=== PATIENT | female | born 1995 ===

== ENCOUNTER → 2017-12-01 | Outpatient (CLI) | payer OTHER ==
[~2017-12-01] MED LIST: ALBU90OI61 INH; IBUP600 PO; Vibramycin100 MG PO
== END | disposition home or self-care (01) ==
LOC: LAB EV 09:53 → LAB SHORT 09:53
DX: R30.0 Dysuria (principal)
CPT/HCPCS: 87086

== ENCOUNTER → 2017-12-19 | Outpatient (CLI) | payer OTHER | LOC: LAB SHORT 11:51 → LAB 11:51 | DX: R30.0 Dysuria (principal) | CPT/HCPCS: 87077; 87086; 87186 ==

== ENCOUNTER → 2018-01-08 | Outpatient (CLI) | payer OTHER ==
[2018-01-13 05:00] LABS: CHLAMYDIA TRACHOMATIS, NAA Negative (Negative); NEISSERIA GONORRHOEAE, NAA Negative (Negative)
== END | disposition home or self-care (01) ==
LOC: LAB 16:18 → LAB SHORT 16:18
PROVIDERS: Obstetrics & Gynecology
DX: Z34.81 Encounter for supervision of other normal pregnancy, first trimester (principal)
CPT/HCPCS: 87491; 87591; G0123

== ENCOUNTER → 2018-01-16 | Outpatient (CLI) | payer OTHER | END | disposition home or self-care (01) | LOC: LAB SHORT 11:50 → LAB 11:50 | DX: R30.0 Dysuria (principal) | CPT/HCPCS: 87086 ==

== ENCOUNTER → 2018-05-04 | Outpatient (CLI) | payer OTHER ==
[~2018-05-04] MED LIST changes: +Keflex500 MG PO
== END | disposition home or self-care (01) ==
LOC: LAB 16:00 → LAB SHORT 16:00
DX: N89.8 Other specified noninflammatory disorders of vagina (principal); R30.0 Dysuria
CPT/HCPCS: 87070; 87077; 87086; 87186; 87205

== ENCOUNTER 2018-07-31 03:28 | Inpatient (IN) | payer OTHER ==
[~2018-07-31] VITALS: Ht 165.1 cm; Wt 73.0 kg
[2018-07-31] MEDS ORDERED: Verotin-Gr Cap1 EACH PO (03:53)
[2018-07-31 04:36] LABS: BASOPHILS ABSOLUTE AUTO 0.03 K/mm3 (0.00-0.23); BASOPHILS PERCENT AUTO 0 % (0-2); EOSINOPHILS PERCENT AUTO 1 % (0-6); Hematocrit 34.3 % (33.0-51.0); IMMATURE GRAN ABSOLUTE AUTO 0.08 K/mm3 (0.00-0.10); IMMATURE GRAN PERCENT AUTO 1 % (0-1); LYMPHOCYTES ABSOLUTE AUTO 2.52 K/mm3 (0.84-5.20); LYMPHOCYTES PERCENT AUTO 20 % (21-46); MONOCYTES ABSOLUTE AUTO 1.16 K/mm3 (0.16-1.47); MONOCYTES PERCENT AUTO 9 % (4-13); Mean Corpuscular HGB 28.3 pg (26.0-34.0); Mean Corpuscular HGB Conc 32.1 g/dL (31.5-36.5); Mean Corpuscular Volume 88 fL (80-100); Mean Platelet Volume 9.9 fL (9.1-12.4); NEUTROPHILS ABSOLUTE AUTO 9.01 K/mm3 (1.96-9.15); NEUTROPHILS PERCENT AUTO 70 % (41-73); Platelet Count 370 K/mm3 (150-400); RDW Coefficient Variation 14.5 % (11.7-14.2); Red Blood Cell Count 3.89 M/mm3 (3.80-5.20)
[2018-08-01 06:06] LABS: BASOPHILS ABSOLUTE AUTO 0.02 K/mm3 (0.00-0.23); BASOPHILS PERCENT AUTO 0 % (0-2); EOSINOPHILS ABSOLUTE AUTO 0.08 K/mm3 (0.00-0.68); EOSINOPHILS PERCENT AUTO 1 % (0-6); Hematocrit 30.4 % (33.0-51.0); Hemoglobin 9.7 g/dL (11.5-16.0); IMMATURE GRAN ABSOLUTE AUTO 0.06 K/mm3 (0.00-0.10); IMMATURE GRAN PERCENT AUTO 1 % (0-1); LYMPHOCYTES ABSOLUTE AUTO 1.74 K/mm3 (0.84-5.20); LYMPHOCYTES PERCENT AUTO 17 % (21-46); MONOCYTES ABSOLUTE AUTO 0.91 K/mm3 (0.16-1.47); MONOCYTES PERCENT AUTO 9 % (4-13); Mean Corpuscular HGB 28.4 pg (26.0-34.0); Mean Corpuscular HGB Conc 31.9 g/dL (31.5-36.5); Mean Corpuscular Volume 89 fL (80-100); Mean Platelet Volume 10.1 fL (9.1-12.4); NEUTROPHILS ABSOLUTE AUTO 7.22 K/mm3 (1.96-9.15); NEUTROPHILS PERCENT AUTO 72 % (41-73); Platelet Count 278 K/mm3 (150-400); RDW Coefficient Variation 14.5 % (11.7-14.2); RDW Standard Deviation 46.5 fL (35.1-46.3); Red Blood Cell Count 3.42 M/mm3 (3.80-5.20); White Blood Cell Count 10.03 K/mm3 (4.00-11.30)
[2018-08-01] MEDS ORDERED: IBUP800 PO (10:42)
== END 2018-08-01 13:05 | disposition home or self-care (01) | DRG 807 ==
LOC: BC 03:28 → OBS 03:28 → BC 04:11 → OBS 04:15 → BC 04:15
PROVIDERS: Obstetrics & Gynecology
PROC: 10E0XZZ Delivery of Products of Conception, External Approach (ICD-10-PCS; principal; 2018-07-31)
PROC: 3E0R3BZ Introduction of Anesthetic Agent into Spinal Canal, Percutaneous Approach (ICD-10-PCS; 2018-07-31)
DX: O80 Encounter for full-term uncomplicated delivery (principal); Z37.0 Single live birth; Z3A.39 39 weeks gestation of pregnancy
CPT/HCPCS: 36415; 85025; J1885; J2590; J7120

== ENCOUNTER → 2019-08-11 | Outpatient (CLI) | payer OTHER ==
[~2019-08-11] MED LIST changes: +IBUP800 PO; +Verotin-Gr Cap1 EACH PO
== END | disposition home or self-care (01) ==
LOC: LAB SHORT 12:27 → LAB 12:27
DX: N39.0 Urinary tract infection, site not specified (principal)
CPT/HCPCS: 87077; 87086; 87186

== ENCOUNTER 2020-09-21 20:19 | Emergency (ER) | payer OTHER ==
[~2020-09-21] VITALS: Ht 165.1 cm; Wt 70.3 kg
[2020-09-21 20:45] LABS: Source, Urine Clean Catch
[2020-09-21 20:56] LABS: Bilirubin, Urine Neg (Neg); Blood, Urine 1+ (Neg); Glucose Qualitative, Urine Neg (Neg); Ketones, Urine 4+ (Neg); Leukocyte Esterase, Urine 1+ (Neg); Nitrite, Urine Neg (Neg); Protein, Urine 1+ (Neg); Specific Gravity, Urine 1.025 (1.003-1.022); Urobilinogen, Urine 2+ (Normal)
[2020-09-21 21:00] LABS: Appearance, Urine Clear (Clear); Color, Urine Amber (P-Yellow)
[2020-09-21 21:01] LABS: Amorphous Light (0-Heavy); Bacteria Few /hpf; Mucus Light (0-Heavy); Squamous Epithelial Cells Rare /hpf (Few); White Blood Cells, Urine 0-2 /hpf (0-5)
== END 2020-09-21 22:44 | disposition home or self-care (01) ==
LOC: ER 20:19
PROVIDERS: Physician Assistant
DX: N83.202 Unspecified ovarian cyst, left side (principal); J45.909 Unspecified asthma, uncomplicated
CPT/HCPCS: 76830; 76856; 81001; 81025; 99284-25

== ENCOUNTER → 2021-06-26 | Outpatient (CLI) | payer OTHER | END | disposition home or self-care (01) | LOC: LAB SHORT 18:42 → LAB 18:42 | DX: N39.0 Urinary tract infection, site not specified (principal) | CPT/HCPCS: 87086 ==

== ENCOUNTER → 2021-11-27 | Outpatient (CLI) | payer OTHER ==
[2021-11-29 03:09] LABS: CHLAMYDIA TRACHOMATIS, NAA Negative (Negative)
== END | disposition home or self-care (01) ==
LOC: LAB 15:43 → LAB SHORT 15:43
PROVIDERS: Obstetrics & Gynecology
DX: Z11.3 Encounter for screening for infections with a predominantly sexual mode of transmission (principal); N89.8 Other specified noninflammatory disorders of vagina
CPT/HCPCS: 87070; 87205; 87491; 87591

== ENCOUNTER → 2023-06-17 | Outpatient (CLI) | payer OTHER | LOC: LAB SHORT 17:45 → LAB 17:45 | DX: N39.0 Urinary tract infection, site not specified (principal) | CPT/HCPCS: 87077; 87086; 87186 ==

== ENCOUNTER 2025-03-24 10:23 | Day surgery (SDC) | payer OTHER ==
[~2025-03-24] VITALS: Ht 162.6 cm; Wt 67.6 kg
[2025-03-24] MEDS ORDERED: ACET500 (10:49)
[2025-03-24] MEDS ORDERED: CODACE30 (10:56)
[2025-03-24] MEDS ORDERED: Midazolam HCl 1MG / ML 2ML Vial ONE ×2 (11:30→11:47)
--- NOTE | 2025-03-24 12:15 | NUR ---
03/24/25 1215 Shy Friend ACETAMINOPHEN 1000MG PO X1 GIVEN AT 11:58AM AND VERSED 2MG IV X 1 GIVEN AT 12:[address] ORDAZ. SPO2 AND HR MONITORING IN PLACE. CALL LIGHT IN PLACE.
[2025-03-24] MEDS ORDERED: FentaNYL Citrate 50 MCG/ML 2 ML Injection ONE (12:16)
[2025-03-24] MEDS ORDERED: Ondansetron HCl 2 MG / ML 2ML Vial ONE (12:16)
[2025-03-24] MEDS ORDERED: Ketorolac Tromethamine 30mg Vial ONE (12:16)
[2025-03-24] MEDS ORDERED: Dexamethasone Sod Phos 10 MG/ML 1ML VIAL ONE (12:16)
[2025-03-24] MEDS ORDERED: Rocuronium Bromide 10 MG/ML 5ML Injection IV ONE (12:16)
[2025-03-24] MEDS ORDERED: Sugammadex Sodium 200 MG/2ML SDV (100 MG/ML) ONE (12:17)
[2025-03-24] MEDS ORDERED: Bupivacaine 0.5% W/EPI 1:200000 SDV 10ML INJ ONE (12:53)
--- NOTE | 2025-03-24 13:22 | NUR ---
03/24/25 1322 Tracee Quintana PT TO PACU. MAINTAINING OWN AIRWAY, BUT YET TO AROUSE . MILDLY BLOODY GUMS, MISSING TEETH S/P DENTAL WORK (PER ANESTH)
[2025-03-24 13:35] VITALS: BP 102/85
== END 2025-03-24 14:40 | disposition home or self-care (01) ==
LOC: ORSCSDS 10:23
PROVIDERS: Obstetrics & Gynecology
PROC: 0UT74ZZ Resection of Bilateral Fallopian Tubes, Percutaneous Endoscopic Approach (ICD-10-PCS; principal; 2025-03-24 12:00)
DX: Z30.2 Encounter for sterilization (principal); Q50.5 Embryonic cyst of broad ligament; I10 Essential (primary) hypertension; J45.909 Unspecified asthma, uncomplicated; Z79.899 Other long term (current) drug therapy
CPT/HCPCS: 88302; A9270; J1100; J1885; J2250; J2405; J2704; J3010; J7120

== ENCOUNTER → 2025-03-25 | Outpatient (CLI) | payer OTHER ==
[~2025-03-25] MED LIST changes: +ACET500; +CODACE30
== END ==
LOC: LAB 12:34 → LAB SHORT 12:34
DX: R30.0 Dysuria (principal)
CPT/HCPCS: 87086

== ENCOUNTER → 2025-06-27 | Outpatient (CLI) | payer OTHER | END | disposition home or self-care (01) | LOC: LAB 18:23 → LAB SHORT 18:23 | DX: R30.0 Dysuria (principal) | CPT/HCPCS: 87086 ==